=== PATIENT | female | born 1940 | race Caucasian/White ===

== ENCOUNTER 2018-02-15 13:02 | Emergency (ER) | payer MEDICARE, BC ==
--- NOTE | 2018-02-15 13:40 | Emergency Department Record ---
History of Present Illness - General Chief Complaint: Fever Stated Complaint: FEVER/CHILLS Time Seen by Provider: 02/15/18 13:34 Source: Patient, RN notes reviewed - History of Present Illness MD Complaint: Fever, Weakness - Related Data Home Medications Medication Instructions Recorded Confirmed Last Taken Bisacodyl [Dulcolax] 5 mg PO DAILY 02/15/18 02/15/18 Unknown Fenofibrate Nanocrystallized 145 mg PO DAILY 02/15/18 02/15/18 02/15/18 [Tricor] Gabapentin [Neurontin] 300 mg PO BID 02/15/18 02/15/18 02/15/18 Hydrocodone/Acetaminophen [[place] 1 tab PO ASDIR 02/15/18 02/15/18 02/13/18 5-325 Tablet] Previous Rx's Medication Instructions Recorded Sulfamethoxazole/Trimethoprim 1 each PO BID #20 tablet 02/15/18 [Bactrim Ds Tablet] Allergies Allergy/AdvReac Type Severity Reaction Status Date / Time No Known Drug Allergies Allergy Verified 02/15/18 13:24 Course - Reevaluation(s) Reevaluation #1: 02/15/18 14:55 discussed case with Jasmyne PABLO at Dr. Ng's office Medical Decision Making - Lab Data Result diagrams: 02/15/18 14:08 02/15/18 14:08 Disposition Clinical Impression: UTI (urinary tract infection) Qualifiers: Urinary tract infection type: acute cystitis Hematuria presence: without hematuria Qualified Code(s): N30.00 - Acute cystitis without hematuria Disposition: Home, Self-Care Condition: (1) Good Instructions: Urinary Tract Infection in Women (ED) Additional Instructions: fluids follow up with family in 5 days return if worse Prescriptions: Sulfamethoxazole/Trimethoprim [Bactrim Ds Tablet] 1 each PO BID #20 tablet Forms: Patient Portal Access Quality - Quality Measures Quality Measures: N/A - Blood Pressure Screening Does Patient Have Any of the Following: No Blood Pressure Classification: Pre-Hypertensive BP Reading Systolic Measurement: 132 Diastolic Measurement: 67 Screening for High Blood Pressure: < Pre-Hypertensive BP, F/U Documented > [ G8950] Pre-Hypertensive Follow-up Interventions: Referral to alternative/primary care provider.
[2018-02-15 13:44] LABS: URINE APPEARANCE CLEAR; URINE BILIRUBIN NEGATIVE (NEGATIVE); URINE BLOOD SMALL (NEGATIVE); URINE COLOR YELLOW; URINE GLUCOSE (UA) NEGATIVE (NEGATIVE); URINE KETONE NEGATIVE (NEGATIVE); URINE LEUKOCYTE ESTERASE LARGE (NEGATIVE); URINE NITRITE NEGATIVE (NEGATIVE); URINE PROTEIN TRACE (NEGATIVE); URINE UROBILINOGEN 0.2 E.U./dL (0.20 - 1.00)
[2018-02-15 13:57] LABS: URINE BACTERIA 4+; URINE EPITHELIAL CELLS 0 - 2 (FEW)
[2018-02-15 14:14] LABS: HEMATOCRIT 33.1 % (35.0-47.0); HEMOGLOBIN 10.2 gm/dl (11.6-16.0); MEAN CELL VOLUME 85.1 fl (81-97); MEAN CORPUSCULAR HEMOGLOBIN 26.2 pg (27-33); MEAN CORPUSCULAR HGB CONC 30.8 g/dl (32-36); MEAN PLATELET VOLUME 9.7 fl (7.4-10.4); PLATELET COUNT 471 K/uL (130-400); RED BLOOD COUNT 3.89 M/uL (3.80-5.40); RED CELL DISTRIBUTION WIDTH 17.3 % (11.5-14.5); WHITE BLOOD COUNT W/O DIFF 6.9 K/uL (4.2-12.2)
[2018-02-15 14:29] LABS: ANISOCYTOSIS 1+; PLATELET ESTIMATE INCREASED (NORMAL)
[2018-02-15 14:32] LABS: CREATININE 1.5 mg/dL (0.5-0.9)
[2018-02-15] MEDS ORDERED: TMP/SMZ 160MG/800MG TAB PO ONE (15:02)
== END 2018-02-15 15:10 | disposition home or self-care (01) ==
LOC: ER 13:02
DX: N30.00 Acute cystitis without hematuria (principal)
CPT/HCPCS: 99282 ×2; 80048; 81001; 85027; J3490

== ENCOUNTER 2018-07-02 11:16 | Emergency (ER) | payer MEDICARE, BC ==
--- NOTE | 2018-07-02 12:55 | Emergency Department Record ---
History of Present Illness - General Chief complaint: Vaginal bleeding Stated complaint: VAGINAL BLEEDING Time Seen by Provider: 07/02/18 12:19 Source: Patient Mode of Arrival: Wheelchair - History of Present Illness Initial comments: vaginal bleeding per granddaughter and she lives at [facility] [place] and she has a rectal wound from surgery from a rectal prolapse surgery september 2017. 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 Recently she had an MRI 4 days ago at [facility] and she has a rectal mass by the vagina. Primary is [facility] appointmnt with oncolgy was about [address] [facility] Onset/Timin -: Hour(s) Location: Other Improves with: None Worsens with: None Associated Symptoms: Denies other symptoms - Related Data Home Medications Medication Instructions Recorded Confirmed Last Taken Acetaminophen [Pain Relief] 500 mg PO QID 07/02/18 07/02/18 1 Day Ago ~07/01/18 Docusate Sodium [Colace] 100 mg PO BID 07/02/18 07/02/18 1 Day Ago ~07/01/18 Janay [place]/Linoleic/Gamoleni 1,000 mg PO DAILY 07/02/18 07/02/18 1 Day Ago [Evening [place] 1,000 mg Sftg] ~07/01/18 Flaxseed/Omega3,6,9/Fatty Acid 1,400 mg PO DAILY 07/02/18 07/02/18 1 Day Ago [Flaxseed Oil] ~07/01/18 Fluoxetine HCl 20 mg PO DAILY 07/02/18 07/02/18 1 Day Ago ~07/01/18 Hempworx 750 10 drop SL DAILY 07/02/18 1 Day Ago ~07/01/18 Levothyroxine Sodium 150 mcg PO DAILY 07/02/18 07/02/18 1 Day Ago ~07/01/18 Lorazepam [Ativan] 1 mg PO TID PRN 07/02/18 07/02/18 1 Day Ago ~07/01/18 Lorazepam [Ativan] 1 mg PO TID PRN 07/02/18 07/02/18 1 Day Ago ~07/01/18 Allergies Allergy/AdvReac Type Severity Reaction Status Date / Time No Known Drug Allergies Allergy Verified 07/02/18 11:39 Travel Screening - Travel/Exposure Within Last 30 Days Have you traveled within the last 30 days?: No - Travel/Exposure Within Last Year Have you traveled outside the [place] in the last year?: No - Additonal Travel Details Have you been exposed to anyone with a communicable illness?: No - Travel Symptoms Symptom Screening: None Review of Systems Reviewed: No additional complaints except as noted below Constitutional: Reports: As per HPI. Denies: Chills, Fever, Malaise, Night sweats, Weakness, Weight change Eyes: Reports: As per HPI. Denies: Eye discharge, Eye pain, Photophobia, Vision change ENT: Reports: As per HPI. Denies: Congestion, Dental pain, Ear pain, Epistaxis , Hearing loss, Throat pain Respiratory: Reports: As per HPI. Denies: Cough, Dyspnea, Hemoptysis, Stridor, Wheezes Cardiovascular: Reports: As per HPI. Denies: Arrhythmia, Chest pain, Dyspnea on exertion, Edema, Murmurs, Orthopnea, Palpitations, Paroxysmal nocturnal dyspnea, Rheumatic Fever, Syncope Endocrine: Reports: As per HPI. Denies: Fatigue, Heat or cold intolerance, Polydipsia, Polyuria Gastrointestinal: Reports: As per HPI. Denies: Abdominal pain, Constipation, Diarrhea, Hematemesis, Hematochezia, Melena, Nausea, Vomiting Genitourinary: Reports: As per HPI, Other (vaginal bleeding). Denies: Abnormal menses, Discharge, Dyspareunia, Dysuria, Frequency, Hematuria, Incontinence, Retention, Urgency Musculoskeletal: Reports: As per HPI. Denies: Arthralgia, Back pain, Gout, Joint swelling, Myalgia, Neck pain Skin: Reports: As per HPI. Denies: Bruising, Change in color, Change in hair/ nails, Lesions, Pruritus, Rash Neurological: Reports: As per HPI. Denies: Abnormal gait, Confusion, Headache, Numbness, Paresthesias, Seizure, Tingling, Tremors, Vertigo, Weakness Psychiatric: Reports: As per HPI. Denies: Anxiety, Auditory hallucinations, Depression, Homicidal thoughts, Suicidal thoughts, Visual hallucinations Hematological/Lymphatic: Reports: As per HPI. Denies: Anemia, Blood Clots, Easy bleeding, Easy bruising, Swollen glands Past Medical History - SOCIAL HISTORY Smoking Status: Never smoker Alcohol Use: None Drug Use: None - RESPIRATORY Hx Respiratory Disorders: No - CARDIOVASCULAR Hx Cardio Disorders: Yes Comment:: High cholesterol - NEURO Hx Neuro Disorders: No - GI Hx GI Disorders: Yes Comment:: colostomy - Hx Genitourinary Disorders: No - ENDOCRINE Hx Endocrine Disorders: No - MUSCULOSKELETAL Hx Musculoskeletal Disorders: No - PSYCH Hx Psych Problems: No - HEMATOLOGY/ONCOLOGY Hx Hematology/Oncology Disorders: Yes Hx Cancer: Yes (rectal) Family Medical History Any Significant Family History?: Yes Hx Cancer: Mother, Brother/Sister Hx Diabetes: Father Physical Exam - General General Appearance: Alert, Oriented x3, Cooperative, No acute distress - Head Head exam: Normal inspection - Eye Eye exam: Normal appearance, PERRL Pupils: Normal accommodation - ENT ENT exam: Normal exam, Mucous membranes moist, Normal external ear exam, Normal orophraynx, TM's normal bilaterally Ear exam: Normal external inspection. negative: External canal tenderness Nasal Exam: Normal inspection. negative: Discharge, Sinus tenderness Mouth exam: Normal external inspection, Tongue normal Teeth exam: Normal inspection. negative: Dental caries Throat exam: Normal inspection. negative: Tonsillar erythema, Tonsillar exudate - Neck Neck exam: Normal inspection, Full ROM. negative: Tenderness - Respiratory Respiratory exam: Normal lung sounds bilaterally. negative: Respiratory distress - Cardiovascular Cardiovascular Exam: Regular rate, Normal rhythm, Normal heart sounds - GI/Abdominal GI/Abdominal exam: Soft, Normal bowel sounds, Other (colostomy and no blood in the bag). negative: Tenderness - Rectal Rectal exam: Deferred, Other (rectum removed) - exam: Vaginal bleeding, Other (bimanual with dark red clots and blood, unable to spread legs.) - Extremities Extremities exam: Normal inspection, Full ROM, Normal capillary refill. negative: Tenderness - Back Back exam: Reports: Normal inspection, Full ROM. Denies: Muscle spasm, Rash noted, Tenderness - Neurological Neurological exam: Alert, Normal gait, Oriented X3, Reflexes normal - Psychiatric Psychiatric exam: Normal affect, Normal mood - Skin Skin exam: Dry, Intact, Normal color, Warm Course Vital Signs 07/02/18 11:50 Temperature 98.2 F Pulse Rate 74 Respiratory 16 Rate Blood Pressure 146/83 Pulse Ox 97 MRI of pelvic shows a rectal mass with extension to the vagina done at [facility] 4 days ago - Reevaluation(s) Reevaluation #1: Discussed case with Dr. Gilbert WELSH at [place] and will transfer [place] [facility] for surgical consultation 07/02/18 16:16 Medical Decision Making - Lab Data Result diagrams: 07/02/18 13:45 07/02/18 13:45 Disposition Clinical Impression: Vaginal bleeding, Mass in rectum Disposition: Acute Care Hospital Transfer Condition: (2) Stable Forms: Patient Portal Access Quality - Quality Measures Quality Measures: N/A - Blood Pressure Screening Does Patient Have Any of the Following: No Blood Pressure Classification: Pre-Hypertensive BP Reading Systolic Measurement: 146 Diastolic Measurement: 83 Screening for High Blood Pressure: < Pre-Hypertensive BP, F/U Documented > [ G8950] Pre-Hypertensive Follow-up Interventions: Referral to alternative/primary care provider.
[2018-07-02 14:01] LABS: BASO % 0.4 % (0-6); EOS % 1.5 % (0-6); GRAN % 78.1 % (47-80); HEMATOCRIT 33.7 % (35.0-47.0); HEMOGLOBIN 10.1 gm/dl (11.6-16.0); MEAN CELL VOLUME 93.9 fl (81-97); MEAN CORPUSCULAR HEMOGLOBIN 28.1 pg (27-33); MEAN PLATELET VOLUME 10.5 fl (7.4-10.4); PLATELET COUNT 375 K/uL (130-400); RED BLOOD COUNT 3.59 M/uL (3.80-5.40); WHITE BLOOD COUNT W/O DIFF 7.4 K/uL (4.2-12.2)
[2018-07-02 14:12] LABS: CREATININE 1.6 mg/dL (0.5-0.9)
[2018-07-02] MEDS: 0.9 % SODIUM CHLORIDE 1000ML 1,000 ML IV PRN (14:38)
== END 2018-07-02 17:04 | disposition short-term general hospital (02) ==
LOC: ER 11:16
DX: K62.89 Other specified diseases of anus and rectum (principal); N93.9 Abnormal uterine and vaginal bleeding, unspecified; Z85.048 Personal history of other malignant neoplasm of rectum, rectosigmoid junction, and anus
CPT/HCPCS: 80048; 85025; 94640; 96360; 96361; 99285